=== PATIENT | male | born 1955 | race Caucasian/White ===

== ENCOUNTER → 2017-06-17 | Outpatient (CLI) | payer BC, OTHER ==
[~2017-06-17] MED LIST: note
== END | disposition home or self-care (01) ==
LOC: C.RDSM 14:28
PROVIDERS: ATTEND Orthopaedic Surgery
DX: R52 Pain, unspecified (principal)

== ENCOUNTER → 2017-07-30 | Outpatient (CLI) | payer OTHER ==
--- NOTE | 2017-07-30 09:02 | DIAGNOSTIC IMAGING REPORT ---
ABDOMEN COMPLETE (US) CLINICAL HISTORY: Generalized abdominal pain COMPARISON STUDY: No previous studies for comparison. FINDINGS: The liver appears sonographically normal. The gallbladder appears sonographically normal. No pancreatic masses are visualized. The spleen measures 10 cm in length. The left kidney measures 10.9 cm in length. The left kidney measures 9.7 cm in length. There is a prominent, particularly on the left. There is no hydronephrosis. There is no evidence of abdominal aortic dilatation. No abnormality IVC are visualized. The common hepatic duct measuring 8 mm. The common bile duct measured 4 mm. IMPRESSION: 1. Ultrasonographically normal liver gallbladder pancreas and spleen 2. No evidence of hydronephrosis 3. No significant ductal dilatation Electronically signed by: Ramone Hatch M.D. 07/30/2017 9:01 AM Dictated Date/Time: 07/30/2017 8:58 AM
== END | disposition home or self-care (01) ==
LOC: C.ULTR 07:50
PROVIDERS: ATTEND Family Medicine
DX: R10.9 Unspecified abdominal pain (principal)